=== PATIENT | female | born 1980 | race Two or more races ===

== ENCOUNTER 2017-11-08 08:51 | Outpatient (CLI) | payer OTHER | END 2017-11-08 10:26 | disposition home or self-care, planned readmission (81) | LOC: NST 08:51 | DX: Z34.83 Encounter for supervision of other normal pregnancy, third trimester (principal) ==

== ENCOUNTER 2018-01-13 15:30 | Inpatient (IN) | payer OTHER ==
[~2018-01-13] VITALS: Ht 167.6 cm; Wt 3.6 kg
== END 2018-01-28 13:18 | DRG 788 ==
LOC: LDR 01-25 08:05 → OB/GYN 01-25 16:25 → O/R 01-25 16:33 → OB/GYN 01-25 17:35
PROVIDERS: Obstetrics & Gynecology Maternal & Fetal Medicine
PROC: 3E033VJ Introduction of Other Hormone into Peripheral Vein, Percutaneous Approach (ICD-10-PCS; 2018-01-25)
PROC: 4A1HXCZ Monitoring of Products of Conception, Cardiac Rate, External Approach (ICD-10-PCS; 2018-01-25)
PROC: 10D00Z1 Extraction of Products of Conception, Low, Open Approach (ICD-10-PCS; principal; 2018-01-25 13:00)
DX: O65.4 Obstructed labor due to fetopelvic disproportion, unspecified (principal); Z3A.39 39 weeks gestation of pregnancy; Z37.0 Single live birth